=== PATIENT | male | born 1960 | race Caucasian/White ===

== ENCOUNTER 2023-03-15 06:01 | Emergency (ER) | payer OTHER ==
[~2023-03-15] VITALS: Ht 172.7 cm; Wt 104.0 kg
[2023-03-15 06:12] VITALS: TEMP 97.6
[2023-03-15] MEDS ORDERED: GABA-1181 PO (06:20)
[2023-03-15] MEDS ORDERED: AMLO-257 PO (06:20)
[2023-03-15] MEDS ORDERED: ATOR40TA28 PO (06:20)
[2023-03-15] MEDS ORDERED: DUTA0.5C38 PO (06:20)
[2023-03-15] MEDS ORDERED: [UNRECOGNIZED DRUG - CODE] PO (06:24)
[2023-03-15] MEDS ORDERED: LISI-893 PO (06:24)
[2023-03-15] MEDS ORDERED: OMEP20 PO (06:24)
[2023-03-15] MEDS ORDERED: PRAZ1 PO (06:24)
[2023-03-15] MEDS ORDERED: SERT-158 PO (06:24)
[2023-03-15] MEDS ORDERED: MIRT-149 PO (06:24)
[2023-03-15] MEDS ORDERED: MAG HYDROX/ALUMINUM HYD/SIMETH 30 ML SUSPENSION UDCUP PO ONE (06:30)
[2023-03-15] MEDS ORDERED: ACETAMINOPHEN 500 MG TABLET PO ONE (06:30)
[2023-03-15] MEDS ORDERED: FAMOTIDINE 20 MG/2 ML VIAL IVP ONE (06:30)
[2023-03-15] MEDS ORDERED: SODIUM CHLORIDE 0.9% 1,000 ML IV ONE (06:30)
[2023-03-15] MEDS ORDERED: ONDANSETRON HCL 4 MG/2 ML VIAL IVP ONE (06:30)
[2023-03-15] MEDS ORDERED: FLUO15CR41 TP (06:41)
[2023-03-15] MEDS ORDERED: CEPACLZ PO (06:41)
[2023-03-15 06:43] LABS: COVID AG,FIA SOURCE NASAL SWAB
[2023-03-15 06:52] LABS: BASOPHILS % (AUTO) 0.2 % (0.0-2.0); EOSINOPHILS % (AUTO) 2.5 % (1.0-6.0); HEMATOCRIT 42.5 % (41-53); HEMOGLOBIN 14.5 g/dL (13.5-17.5); LYMPHOCYTES # (AUTO) 0.4 K/uL (1.0-4.8); LYMPHOCYTES % (AUTO) 3.9 % (22.0-44.0); MEAN CORPUSCULAR HGB CONC 34.2 G/dL (31.0-37.0); MEAN CORPUSCULAR VOLUME 88 fL (80-100); MONOCYTES # (AUTO) 0.5 K/uL (0.1-1.0); MONOCYTES % (AUTO) 5.5 % (2.0-9.0); NEUTROPHILS # (AUTO) 8.6 K/uL (1.8-7.7); PLATELET COUNT (AUTO) 270 K/uL (150-450); RED BLOOD CELL COUNT(AUTO) 4.85 MIL/uL (4.50-5.90); RED CELL DISTRIBUTION WIDTH 12.7 % (11.5-14.5); WHITE BLOOD COUNT (AUTO) 9.8 K/uL (4.5-11.0)
[2023-03-15 06:54] LABS: NEUTROPHILS % (AUTO) 87.9 % (40.0-70.0)
[2023-03-15 06:55] VITALS: BP 133/56; PULSE 82; RESP 14
[2023-03-15 07:03] LABS: ANION GAP 9 mmol/L (8-16); CALCIUM, TOTAL 9.3 mg/dL (8.8-10.5); CARBON DIOXIDE 28 mmol/L (22-29); CHLORIDE 101 mmol/L (98-107); CREATININE 0.93 mg/dL (0.60-1.30); GLOMERULAR FILTR. RATE CALC > 60 mL/min (>60); GLUCOSE,RANDOM 102 mg/dL (70-110); POTASSIUM 4.3 mmol/L (3.5-5.1); SODIUM SERUM 138 mmol/L (136-145); UREA NITROGEN, BLOOD 14 mg/dL (7-18)
[2023-03-15 07:06] LABS: INFLUENZA TYPE A NEGATIVE FOR TYPE A (NEGATIVE); INFLUENZA TYPE B NEGATIVE FOR TYPE B (NEGATIVE); SARS-COV2 (COVID) ANTIGEN,FIA Negative (Negative)
[2023-03-15 07:12] LABS: TROPONIN I-HIGH SENSITIVITY 5 ng/L (<76)
[2023-03-15 07:14] LABS: B-TYPE NATRIURETIC PEPTIDE 21 pg/mL (0-100)
[2023-03-15 07:28] LABS: ALANINE AMINOTRANSFERASE 20 U/L (12-78); ALBUMIN 4.3 g/dL (3.4-5.0); ALKALINE PHOSPHATASE 83 U/L (46-116); ASPARTATE AMINOTRANSFERASE 21 U/L (15-37); BILIRUBIN,TOTAL 0.3 mg/dL (0.1-1.0); CREATINE KINASE, TOTAL ONLY 205 U/L (39-308); LIPASE 110 U/L (16-77); TOTAL PROTEIN, SERUM 8.2 g/dL (6.4-8.2)
[2023-03-15] MEDS ORDERED: ONDA-104 PO (07:44)
[2023-03-15] MEDS ORDERED: ACET-3385 PO (07:44)
[2023-03-16] MEDS ORDERED: IBUP-1492 PO (07:47)
[2023-03-16] MEDS ORDERED: LIDO700A15 TP (07:47)
== END 2023-03-15 08:10 | disposition home or self-care (01) ==
LOC: EMS 06:03
DX: R19.7 Diarrhea, unspecified (principal); R11.2 Nausea with vomiting, unspecified; F32.A Depression, unspecified; I10 Essential (primary) hypertension; F17.210 Nicotine dependence, cigarettes, uncomplicated; Z20.822 Contact with and (suspected) exposure to COVID-19
CPT/HCPCS: 99285; 96374; 71045; 96361; 96375; 87426; 80053; 82550; 83690; 83880; 84484; 85025; 87804; 36415; 93005; J3490; J2405; J7030

== ENCOUNTER 2023-03-16 06:16 | Emergency (ER) | payer OTHER ==
[~2023-03-16] VITALS: Ht 172.7 cm; Wt 104.0 kg
[~2023-03-16 06:16] MED LIST: ACET-3385 PO; AMLO-257 PO; ATOR40TA28 PO; CEPACLZ PO; DUTA0.5C38 PO; FLUO15CR41 TP; GABA-1181 PO; LISI-893 PO; MIRT-149 PO; OMEP20 PO; ONDA-104 PO; PRAZ1 PO; SERT-158 PO; [UNRECOGNIZED DRUG - CODE] PO
[2023-03-16 06:19] VITALS: TEMP 98.3
[2023-03-16 07:00] LABS: BASOPHILS % (AUTO) 0.7 % (0.0-2.0); EOSINOPHILS % (AUTO) 8.4 % (1.0-6.0); HEMATOCRIT 39.6 % (41-53); HEMOGLOBIN 13.3 g/dL (13.5-17.5); LYMPHOCYTES % (AUTO) 15.9 % (22.0-44.0); MEAN CORPUSCULAR HEMOGLOBIN 29.5 pg (26.0-34.0); MEAN CORPUSCULAR HGB CONC 33.7 G/dL (31.0-37.0); MEAN CORPUSCULAR VOLUME 88 fL (80-100); MONOCYTES # (AUTO) 0.8 K/uL (0.1-1.0); MONOCYTES % (AUTO) 12.5 % (2.0-9.0); NEUTROPHILS % (AUTO) 62.5 % (40.0-70.0); PLATELET COUNT (AUTO) 236 K/uL (150-450); RED BLOOD CELL COUNT(AUTO) 4.51 MIL/uL (4.50-5.90); WHITE BLOOD COUNT (AUTO) 6.4 K/uL (4.5-11.0)
[2023-03-16 07:10] LABS: ANION GAP 9 mmol/L (8-16); CALCIUM, TOTAL 8.5 mg/dL (8.8-10.5); CARBON DIOXIDE 25 mmol/L (22-29); CHLORIDE 102 mmol/L (98-107); CREATININE 0.83 mg/dL (0.60-1.30); GLOMERULAR FILTR. RATE CALC > 60 mL/min (>60); GLUCOSE,RANDOM 96 mg/dL (70-110); POTASSIUM 3.9 mmol/L (3.5-5.1); SODIUM SERUM 136 mmol/L (136-145); UREA NITROGEN, BLOOD 11 mg/dL (7-18)
[2023-03-16 07:20] LABS: TROPONIN I-HIGH SENSITIVITY 6 ng/L (<76)
[2023-03-16 07:28] LABS: B-TYPE NATRIURETIC PEPTIDE 54 pg/mL (0-100)
[2023-03-16] MEDS ORDERED: LIDOCAINE 5% TRANSDERMAL PATCH TD ONE (07:30)
[2023-03-16] MEDS ORDERED: IBUPROFEN 600 MG TABLET PO ONE (07:30)
[2023-03-16 07:32] LABS: ALANINE AMINOTRANSFERASE 14 U/L (12-78); ALBUMIN 3.5 g/dL (3.4-5.0); ALKALINE PHOSPHATASE 67 U/L (46-116); ASPARTATE AMINOTRANSFERASE 19 U/L (15-37); BILIRUBIN,TOTAL 0.2 mg/dL (0.1-1.0); CREATINE KINASE, TOTAL ONLY 128 U/L (39-308)
[2023-03-16 07:45] VITALS: BP 136/78; PULSE 77; RESP 16
[2023-03-16] MEDS ORDERED: LIDO700A15 TP (07:47)
[2023-03-16] MEDS ORDERED: IBUP-1492 PO (07:47)
== END 2023-03-16 08:00 | disposition home or self-care (01) ==
LOC: EMS 06:16
DX: R07.89 Other chest pain (principal); F32.A Depression, unspecified; I10 Essential (primary) hypertension; F17.210 Nicotine dependence, cigarettes, uncomplicated
CPT/HCPCS: 71045; 80053; 82550; 83880; 84484; 85025; 93005; 99285; 36415-L1; 36415-TC

== ENCOUNTER 2023-05-11 15:00 | Emergency (ER) | payer OTHER ==
[~2023-05-11] VITALS: Ht 172.7 cm; Wt 109.1 kg
[~2023-05-11 15:00] MED LIST changes: +IBUP-1492 PO; +LIDO700A15 TP
[2023-05-11 15:06] VITALS: BP 130/86; PULSE 72; RESP 18; TEMP 98.9
[2023-05-11 15:54] LABS: INFLUENZA A-RTPCR,COMBO NEGATIVE (NEGATIVE); INFLUENZA B-RTPCR,COMBO NEGATIVE (NEGATIVE); RESPIRATORY SYNCYTIAL VRS-PCR NEGATIVE (NEGATIVE); SARS COVID19 RTPCR, COMBO NEGATIVE (NEGATIVE)
== END 2023-05-11 17:55 | disposition home or self-care (01) ==
LOC: EMS 15:00
DX: J06.9 Acute upper respiratory infection, unspecified (principal); F17.210 Nicotine dependence, cigarettes, uncomplicated; F32.A Depression, unspecified; I10 Essential (primary) hypertension; Z20.822 Contact with and (suspected) exposure to COVID-19
CPT/HCPCS: 99283; 0241U